=== PATIENT | female | born 1960 | race Asian ===

== ENCOUNTER 2016-06-11 18:52 | Emergency (ER) | payer OTHER ==
[~2016-06-11] VITALS: Ht 165.1 cm; Wt 72.0 kg
[2016-06-11] MEDS ORDERED: ALLO100T PO (19:28)
[2016-06-11] MEDS ORDERED: LISI-662 PO (19:28)
[2016-06-11] MEDS ORDERED: ACETAMINOPHEN 500 MG TABLET PO ONE (20:30)
[2016-06-11] MEDS ORDERED: IBUPROFEN 600 MG TABLET PO ONE (20:30)
[2016-06-11 20:36] VITALS: BP 159/86
== END 2016-06-11 20:38 | disposition home or self-care (01) ==
LOC: EMS 18:54
DX: S40.012A Contusion of left shoulder, initial encounter (principal); S50.02XA Contusion of left elbow, initial encounter; S20.212A Contusion of left front wall of thorax, initial encounter; I10 Essential (primary) hypertension; W11.XXXA Fall on and from ladder, initial encounter; Y93.89 Activity, other specified; Y92.89 Other specified places as the place of occurrence of the external cause; Y99.8 Other external cause status
CPT/HCPCS: 99284